=== PATIENT | female | born 1990 | race Caucasian/White ===

== ENCOUNTER 2020-09-07 20:19 | Observation (INO) ==
[2020-09-08] MEDS ORDERED: SODIUM CHLORIDE 0.9% 1,000 ML IV STA (00:02)
[2020-09-08] MEDS ORDERED: ONDANSETRON 4 MG/2 ML VIAL IV STA (00:02)
[2020-09-08 00:34] LABS: Basophils % 0.3 % (0.0-0.8); Eosinophils # 0.1 10*3/uL (0.0-0.87); Eosinophils % 0.8 % (0.00-10.9); Hematocrit 42.2 VOL% (35.7-47.0); Hemoglobin 14.2 GM/DL (12.0-16.0); Immature Granulocytes % 0.3 %; Immature Granulocytes Absolute 0.03 #; Lymphocytes # 3.3 10*3/uL (1.4-4.0); Mean Corpuscular HGB Conc 33.6 GM/DL (32-36); Mean Corpuscular Volume 86.3 FL (87-102); Mean Platelet Volume 9.9 FL (9.6-12.0); Monocytes % 5.1 % (1.7-12.7); Neutrophils % 57.5 % (38.7-73.9); Platelet Count 153 T/CUMM (130-400); Red Blood Count 4.89 MC/CUMM (3.8-5.5); Red Cell Distribution Width 13.2 % (9.3-17.3); White Blood Count 9.2 T/CUMM (4-12)
[2020-09-08 00:50] LABS: Calcium 9.6 MG/DL (8.5-10.1); Osmolality,Calculated 270.8 MOS/KG (273-304); Potassium 4.6 MMOL/L (3.5-5.1)
[2020-09-08 00:57] LABS: INR 1.1; PT Patient Result 11.8 SECS (10.5-12.0)
[2020-09-08] MEDS ORDERED: PANTOPRAZOLE 40 MG VIAL IV STA (01:28)
[2020-09-08] MEDS ORDERED: HYDROmorphone 2 MG/1 ML VIAL IV STA (02:05)
[2020-09-08] MEDS ORDERED: SODIUM CHLORIDE 0.9% 1,000 ML IV SCH (03:00)
[2020-09-08 05:26] LABS: Hematocrit 40.7 VOL% (35.7-47.0); Hemoglobin 13.3 GM/DL (12.0-16.0)
[2020-09-08] MEDS: ONDANSETRON 4 MG/2 ML VIAL IV PRN ×2 (05:26→14:54)
[2020-09-08] MEDS: HYDROmorphone 2 MG/1 ML VIAL IV PRN ×5 (05:27→21:46)
[2020-09-08 05:35] LABS: INR 1.1; PT Patient Result 11.9 SECS (10.5-12.0)
[2020-09-08 05:57] LABS: Albumin 3.7 G/DL (3.4-5.0); Calcium 8.9 MG/DL (8.5-10.1); Osmolality,Calculated 275.4 MOS/KG (273-304); Potassium 3.6 MMOL/L (3.5-5.1); Total Protein 7.5 G/DL (6.4-8.2)
[2020-09-08] MEDS: LEVOTHYROXINE 50 MCG TABLET PO SCH (06:26)
[2020-09-08] MEDS ORDERED: HYDROmorphone 2 MG/1 ML VIAL IV ONE (06:46)
[2020-09-08] MEDS: PANTOPRAZOLE 40 MG VIAL IV SCH ×2 (10:17→20:19)
[2020-09-08] MEDS ORDERED: SODIUM CHLORIDE 0.9% 1,000 ML IV PRN (10:36)
[2020-09-08] MEDS ORDERED: NALOXONE 0.4 MG/ML VIAL IV PRN (10:36)
[2020-09-08] MEDS ORDERED: HYDROmorphone PCA 30 MG/30 ML SYRINGE IV SCH (11:00)
[2020-09-08] MEDS ORDERED: ACETAMINOPHEN 325 MG TABLET PO PRN (13:52)
[2020-09-09] MEDS: HYDROmorphone 2 MG/1 ML VIAL IV PRN ×2 (01:53→05:53)
[2020-09-09 05:06] LABS: Basophils % 0.3 % (0.0-0.8); Eosinophils # 0.1 10*3/uL (0.0-0.87); Eosinophils % 1.4 % (0.00-10.9); Hematocrit 36.4 VOL% (35.7-47.0); Immature Granulocytes % 0.2 %; Immature Granulocytes Absolute 0.02 #; Lymphocytes # 3.3 10*3/uL (1.4-4.0); Lymphocytes % 37.5 % (21.3-54.2); Mean Corpuscular Volume 89.2 FL (87-102); Mean Platelet Volume 9.6 FL (9.6-12.0); Monocytes % 7.5 % (1.7-12.7); Neutrophils % 53.1 % (38.7-73.9); Platelet Count 207 T/CUMM (130-400); Red Blood Count 4.08 MC/CUMM (3.8-5.5); Red Cell Distribution Width 13.2 % (9.3-17.3); White Blood Count 8.7 T/CUMM (4-12)
[2020-09-09] MEDS: LEVOTHYROXINE 50 MCG TABLET PO SCH (05:50)
[2020-09-09 06:01] LABS: Albumin 3.2 G/DL (3.4-5.0); Bilirubin,Total 0.9 MG/DL (0.2-1.0); Calcium 8.6 MG/DL (8.5-10.1); Osmolality,Calculated 276.4 MOS/KG (273-304); Potassium 3.6 MMOL/L (3.5-5.1); Total Protein 6.5 G/DL (6.4-8.2)
[2020-09-09] MEDS ORDERED: LACTATED RINGERS 1,000 ML IV SCH (06:30)
[2020-09-09] MEDS ORDERED: LIDOCAINE 2% 5 ML VIAL ONE (07:44)
[2020-09-09] MEDS ORDERED: propofoL 200 MG/20 ML VIAL IV ONE ×2 (07:44→07:57)
[2020-09-09] MEDS: PANTOPRAZOLE 40 MG VIAL IV SCH (09:11)
[2020-09-09] MEDS ORDERED: HYDROmorphone PCA 30 MG/30 ML SYRINGE IV SCH (12:00)
[2020-09-09] MEDS ORDERED: WARFARIN 10 MG TABLET PO SCH (15:00)
[2020-09-09 15:55] VITALS: BP 116/79
== END 2020-09-09 19:45 | disposition left against medical advice (07) ==
LOC: N.ED 20:19 → N.EDINP 09-08 02:45 → INTOOBSV 09-08 02:45 → N.5E 09-08 03:43
PROVIDERS: ADMIT Internal Medicine; ATTEND Internal Medicine